=== PATIENT | male | born 1940 | race Caucasian/White ===

== ENCOUNTER 2018-07-31 23:48 | Inpatient (IN) | payer MEDICARE ==
[~2018-07-31] VITALS: Ht 193 cm; Wt 85.7 kg
--- NOTE | 2018-08-01 00:40 | NUR ---
PT BIBSELF C/O REDDNESS AND SWELLING ON LEFT FOOT. PT STATES HE IS UNSURE OF WHEN HE FIRST NOTICED SYMPTOMS, BUT GOT WORSE TODAY. PT DENIES SOB, CHEST PAIN, N/V/D. PT AAOX4. RESPIRATIONS EVEN AND UNLABORED. SKIN WARM AND INTACT. NO ACUTE DISTRESS NOTED. PT ABLE TO AMBULATE WITH STEADY GAIT. PLACED ON MONITOR, WILL CONTINUE TO MONITOR
--- NOTE | 2018-08-01 00:40 | NUR ---
HARMEET CORREA AT BEDSIDE FOR EVALUATION
--- NOTE | 2018-08-01 00:50 | NUR ---
IV INITIATED RIGHT AC 18G. LABS DRAWN FROM SITE. OFFLINE CUTTER AT BEDSIDE FOR COLLECTION. IV INTACT AND PATENT, PLACED ON SALINE LOCK
--- NOTE | 2018-08-01 00:50 | NUR ---
URINE COLLECTED AND SENT TO LAB
[2018-08-01] MEDS ORDERED: IV NS 0.9% 500 ML BAG IV ONE ×2 (01:00→01:30)
[2018-08-01 01:03] LABS: BASOPHILS % (AUTO) 0.1 % (0.0-2.0); EOSINOPHILS % (AUTO) 0.3 % (0.0-6.0); HEMATOCRIT 42 % (39-51); HEMOGLOBIN 14.5 g/dL (13.5-17.5); LYMPHOCYTES # (AUTO) 0.7 /CMM (0.8-4.8); LYMPHOCYTES % (AUTO) 6.9 % (20.0-44.0); MEAN CORPUSCULAR HGB CONC 35 g/dl (31.0-36.0); MEAN CORPUSCULAR VOLUME 95 fL (80-96); MONOCYTES # (AUTO) 0.8 /CMM (0.1-1.30); MONOCYTES % (AUTO) 8.2 % (2.0-12.0); NEUTROPHILS # (AUTO) 8.6 /CMM (1.8-8.9); NEUTROPHILS % (AUTO) 84.5 % (43.0-81.0); PLATELET COUNT (AUTO) 118 /CMM (150-450); RED BLOOD CELL COUNT(AUTO) 4.38 MIL/uL (4.5-6.0); WHITE BLOOD COUNT (AUTO) 10.2 K/uL (4.3-11.0)
[2018-08-01 01:12] LABS: APPEARANCE,URINE CLEAR (CLEAR); BILIRUBIN,URINE NEGATIVE (NEGATIVE); BLOOD, URINE NEGATIVE Ery/uL (NEGATIVE); COLOR,URINE YELLOW (YELLOW); KETONES,URINE NEGATIVE (NEGATIVE); LEUKOCYTE ESTERASE ,URINE NEGATIVE (NEGATIVE); NITRITE, URINE NEGATIVE (NEGATIVE); PROTEIN,URINE NEGATIVE (NEGATIVE); UGLUCOSE NEGATIVE (NEGATIVE); UROBILINOGEN,URINE 0.2 EU/dL (0.2)
[2018-08-01 01:13] LABS: CALCIUM, SERUM 8.9 mg/dL (8.5-10.1); CARBON DIOXIDE 30 mmol/L (21-32); CHLORIDE 100 mmol/L (98-107); CREATININE 1.3 mg/dL (0.6-1.3); GLUCOSE 113 mg/dL (74-106); POTASSIUM 3.1 mmol/L (3.5-5.1); SODIUM SERUM 138 mmol/L (136-145); UREA NITROGEN, BLOOD 26 mg/dL (7-18)
[2018-08-01 01:20] LABS: ALANINE AMINOTRANSFERASE 30 U/L (12-78); ALBUMIN 3.2 g/dL (3.4-5.0); ALKALINE PHOSPHATASE 56 U/L (46-116); ASPARTATE AMINOTRANSFERASE 29 U/L (15-37); BILIRUBIN,DIRECT 0.2 mg/dL (0.0-0.2); BILIRUBIN,TOTAL 0.7 mg/dL (0.2-1.0); TOTAL PROTEIN, SERUM 7.4 g/dL (6.4-8.2)
[2018-08-01] MEDS ORDERED: VANCOMYCIN 1 GM in IV D5W 250 ML IV ONE (01:30)
[2018-08-01] MEDS ORDERED: PIPERACILLIN /TAZOBACTAM 3.375 G in IV D5W 50 ML IV ONE (01:30)
[2018-08-01] MEDS ORDERED: CLINDAMYCIN 900 MG in IV D5W 100 ML IV ONE (01:30)
--- NOTE | 2018-08-01 01:37 | NUR ---
[facility] CALLED FOR AN XRAY READ.
[2018-08-01] MEDS ORDERED: PIPERACILLIN /TAZOBACTAM 3.375 G VIAL IV ONE (01:54)
--- NOTE | 2018-08-01 02:35 | NUR ---
GAVE REPORT TO CROW ESQUEDA FOR SAMEER
[2018-08-01] MEDS ORDERED: CLINDAMYCIN 900 MG/6 ML VIAL ONE (02:37)
--- NOTE | 2018-08-01 02:52 | NUR ---
TOR CALLED. DR VIZCAINO
[2018-08-01] MEDS ORDERED: POTASSIUM CHLORIDE 20 MEQ TAB.PRT.SR PO SCH (03:00)
[2018-08-01] MEDS ORDERED: POTASSIUM CHLORIDE 20 MEQ TAB.PRT.SR PO ONE ×2 (03:00→03:09)
--- NOTE | 2018-08-01 03:42 | NUR ---
MS RN OPENING NOTES: RECEIVED PT ON ROOM AIR AND IS TOLERATING WELL. NO SOB NOTED. NO S/S OF DISTRESS. NOTED L LOWER LEG RED AND SWOLLEN. BILATERAL FEEL NOTED SWELLING BUT NON PITTING. PT NOT COMPLAINING OF PAIN AT THIS TIME. PT HAS IV ON R AC #18G AND IS BEING INFUSED WITH CLINDAMYCIN IV AT THIS TIME. BED KEPT IN LOW, LOCKED POSITION, AND SIDE RAILS X 2UP. WILL CONTINUE TO MONITOR PT.
--- NOTE | 2018-08-01 03:43 | NUR ---
[facility] CALLED TO READ RADIOLOGY REPORT
--- NOTE | 2018-08-01 03:52 | NUR ---
[facility]
[2018-08-01 04:00] VITALS: BP 131/73
[2018-08-01] MEDS ORDERED: POTA-88 PO (04:14)
[2018-08-01] MEDS ORDERED: VIT1CAPS44 PO (04:14)
[2018-08-01] MEDS ORDERED: AMIL1TAB PO (04:14)
[2018-08-01] MEDS ORDERED: NIAC500T2 PO (04:14)
[2018-08-01] MEDS ORDERED: ASPI-1169 PO (04:14)
[2018-08-01] MEDS ORDERED: ALLO100T PO (04:14)
[2018-08-01] MEDS ORDERED: Z GUARD REMEDY 2 OZ OINT TP PRN (04:30)
[2018-08-01] MEDS ORDERED: MAG HYDROX/AL HYDROX/SIMETH 30 ML UDC PO PRN (04:30)
[2018-08-01] MEDS ORDERED: HYDROCODONE/APAP 5/325MG 1 EACH TABLET PO PRN (04:30)
[2018-08-01] MEDS ORDERED: ACETAMINOPHEN 325 MG TABLET PO PRN (04:30)
[2018-08-01] MEDS ORDERED: MAGNESIUM HYDROXIDE 30 ML UDC PO PRN (04:30)
[2018-08-01] MEDS ORDERED: ZOLPIDEM TARTRATE 5 MG TABLET PO PRN (04:30)
[2018-08-01] MEDS ORDERED: ONDANSETRON HCL/PF 4 MG/2 ML VIAL IVP PRN (04:30)
[2018-08-01] MEDS: IV NS 0.9% 1,000 ML IV PRN ×2 (04:49→18:47)
--- NOTE | 2018-08-01 06:50 | NUR ---
MS RN CLOSING NOTES: ALL NEEDS WERE ATTENDED AND ANTICIPATED FOR. PT KEPT CLEAN, DRY, AND COMFORTABLE. PT ON ROOM AIR AND TOLERATING WELL. NO SOB NOTED. NO S/S OF DISTRESS. PT ASLEEP AT THIS TIME. PT DISCONNECTED FROM IV AT THIS TIME PT WENT TO BATHROOM EARLIER. WILL RECONNECT PT BACK TO IV ON R AC #18G TO BE INFUSED AT NS AT 100ML/HR. BED KEPT IN LOW, LOCKED POSITION, AND SIDE RAILS X 2 UP. WILL ENDORSE TO AM NURSE FOR SAMEER.
--- NOTE | 2018-08-01 07:22 | NUR ---
RN OPENING NOTE PT WAS RECEIVED LYING IN BED AT LOWEST AND LOCKED POSITION WITH SIDE RAILS UP X2, A/O 4, BREATHING EVEN AND UNLABORED ON RA, NO CURRENT COMPLAINTS OF PAIN OR DISTRESS NOTED, IV IS PATENT AND INTACT WITH IVF INFUSING AT 100 ML/HR, NOTED TO HAVE LEFT LEG REDNESS, AMBULATORY, SAFETY PRECAUTIONS IN PLACE, CALL LIGHT WITHIN REACH, WILL MONITOR ACCORDINGLY
[2018-08-01 08:00] VITALS: BP 107/49
[2018-08-01] MEDS: POTASSIUM CHLORIDE 20 MEQ TAB.PRT.SR PO SCH (08:04)
[2018-08-01] MEDS: ASPIRIN 81 MG TAB.CHEW PO SCH (08:04)
[2018-08-01] MEDS: ALLOPURINOL 100 MG TABLET PO SCH (08:04)
[2018-08-01] MEDS: HYDROCHLOROTHIAZIDE 25 MG TABLET PO SCH (08:05)
--- NOTE | 2018-08-01 08:10 | NUR ---
RN NOTE WITHHELD HYDROCHLORATHIAZIDE DUE TO BLOOD PRESSURE OF 107/49 PULSE OF 55. WILL MONITOR ACCORDINGLY.
[2018-08-01] MEDS: AMILORIDE HCL 5 MG TABLET PO SCH (09:02)
[2018-08-01] MEDS: CLINDAMYCIN 600 MG in IV D5W 50 ML IV SCH ×3 (11:01→23:39)
[2018-08-01] MEDS ORDERED: CLINDAMYCIN IV RTU IN D5W 900 MG/50 ML PIGGYBACK IV SCH (12:00)
[2018-08-01] MEDS ORDERED: CLINDAMYCIN 600 MG in IV NS 0.9% 50 ML IV SCH (12:00)
[2018-08-01 16:00] VITALS: BP 107/53
[2018-08-01] MEDS ORDERED: NIACIN EXT TAB (500MG) 500 MG TABLET.SA PO SCH (18:00)
--- NOTE | 2018-08-01 18:32 | NUR ---
RN CLOSING NOTE PT RESTING COMFORTABLY IN BED AT LOWEST AND LOCKED POSITION WITH SIDE RAILS UP X2, AWAKE AND ALERT X4, BREATHING EVEN AND UNLABORED, NO S/S OF PAIN OR DISTRESS AT THIS TIME, IVF INFUSING, SAFETY PRECAUTIONS IN PLACE, CALL LIGHT WITHIN REACH, WILL ENDORSE TO STEAM FITTER RN FOR SAMEER.
--- NOTE | 2018-08-01 19:10 | NUR ---
MS/RN OPENING NOTES PT RECEIVED AWAKE, RESTING COMFORTABLY IN BED. A/OX4. ON ROOM AIR, BREATHING EVEN AND UNLABORED. DENIES SOB AND PAIN AT THIS TIME. IN NO ACUTE DISTRESS. IV TO RAC PATENT AND INTACT RUNNING IVF ORDERED. REDNESS AND EDEMA NOTED TO LLE. PT STATES IT HAS IMPROVED SINCE YESTERDAY. BED IN LOW/LOCKED POSITION WITH CALL LIGHT IN REACH, BILATERAL UPPER SIDE RAILS IN PLACE. SEMI FOWLERS. WILL CONTINUE TO MONITOR
[2018-08-01 20:00] VITALS: BP 110/54
[2018-08-02] MEDS: CLINDAMYCIN 600 MG in IV D5W 50 ML IV SCH ×2 (05:59→11:00)
[2018-08-02] MEDS: IV NS 0.9% 1,000 ML IV PRN (06:36)
--- NOTE | 2018-08-02 07:01 | NUR ---
MS/RN CLOSING NOTES PT AWAKE, LAYING COMFORTABLY IN BED. A/OX4. ON ROOM AIR, BREATHING EVEN AND UNLABORED. DENIES SOB AND PAIN. IN NO ACUTE DISTRESS. IV TO RAC PATENT AND INTACT RUNNING IVF ORDERED. NO SIGNIFICANT CHANGES OVERNIGHT. ALL NEEDS MET. SLEPT WELL DURING SHIFT. BED REMAINS IN LOW/LOCKED POSITION WITH CALL LIGHT IN REACH. BILATERAL UPPER SIDE RAILS IN PLACE. WILL ENDORSE TO DAY SHIFT RN SAMEER.
[2018-08-02 07:04] LABS: CALCIUM, SERUM 8.4 mg/dL (8.5-10.1); CARBON DIOXIDE 25 mmol/L (21-32); CHLORIDE 108 mmol/L (98-107); GLUCOSE 97 mg/dL (74-106); MAGNESIUM 1.8 mg/dL (1.8-2.4); PHOSPHORUS 2.6 mg/dL (2.5-4.9); POTASSIUM 3.8 mmol/L (3.5-5.1); SODIUM SERUM 140 mmol/L (136-145); UREA NITROGEN, BLOOD 16 mg/dL (7-18)
[2018-08-02 07:08] LABS: CHOLESTEROL 128 mg/dL (<200); HDL CHOLESTEROL 39 mg/dL (40-60); LDL 81 mg/dL (0-99); TRIGLYCERIDES 85 mg/dL (30-150)
[2018-08-02 07:11] LABS: BASOPHILS % (AUTO) 0.3 % (0.0-2.0); EOSINOPHILS % (AUTO) 1.1 % (0.0-6.0); HEMATOCRIT 37 % (39-51); HEMOGLOBIN 12.5 g/dL (13.5-17.5); LYMPHOCYTES # (AUTO) 0.7 /CMM (0.8-4.8); LYMPHOCYTES % (AUTO) 10.8 % (20.0-44.0); MEAN CORPUSCULAR HGB CONC 34 g/dl (31.0-36.0); MEAN CORPUSCULAR VOLUME 96 fL (80-96); MONOCYTES # (AUTO) 0.6 /CMM (0.1-1.30); NEUTROPHILS % (AUTO) 77.8 % (43.0-81.0); PLATELET COUNT (AUTO) 94 /CMM (150-450); RED BLOOD CELL COUNT(AUTO) 3.82 MIL/uL (4.5-6.0); WHITE BLOOD COUNT (AUTO) 6.4 K/uL (4.3-11.0)
--- NOTE | 2018-08-02 07:19 | NUR ---
RN OPENING NOTE PT WAS RECEIVED SLEEPING IN BED AT LOWEST AND LOCKED POSITION WITH SIDE RAILS UP X2, A/O 4, BREATHING EVEN AND UNLABORED ON RA, NO CURRENT COMPLAINTS OF PAIN OR DISTRESS NOTED, IV IS PATENT AND INTACT WITH IVF INFUSING, NOTED TO HAVE LEFT LEG REDNESS, AMBULATORY, SAFETY PRECAUTIONS IN PLACE, CALL LIGHT WITHIN REACH, WILL MONITOR ACCORDINGLY
[2018-08-02 08:00] VITALS: BP 85/55
[2018-08-02] MEDS: ASPIRIN 81 MG TAB.CHEW PO SCH (08:08)
[2018-08-02] MEDS: ALLOPURINOL 100 MG TABLET PO SCH (08:08)
[2018-08-02] MEDS: HYDROCHLOROTHIAZIDE 25 MG TABLET PO SCH (08:09)
[2018-08-02] MEDS: AMILORIDE HCL 5 MG TABLET PO SCH (08:10)
[2018-08-02] MEDS: POTASSIUM CHLORIDE 20 MEQ TAB.PRT.SR PO SCH (08:10)
--- NOTE | 2018-08-02 08:11 | NUR ---
RN NOTE HYDROCHLOROTHIAZIDE NOT GIVEN DUE TO LOW BP OF 85/55, AND AMLORIDE NOT GIVEN DUE TO LOW BOP OF 85/55 AND NORMAL POTASSIUM LEVEL OF 3.8. WILL MONITOR ACCORDINGLY
[2018-08-02 10:31] LABS: BAND % (MANUAL) 3 % (0.0-5.0); EOSINOPHILS % (MANUAL) 6 % (0-4); LYMPHOCYTES % (MANUAL) 9 % (16-48); MONOCYTES % (MANUAL) 7 % (0-11.0); NEUTROPHILS % (MANUAL) 75 (42-76)
[2018-08-02] MEDS ORDERED: FEE PK DOSING 1 MIN EA MC ONE (15:53)
[2018-08-02 16:00] VITALS: BP 134/69
[2018-08-02] MEDS: VANCOMYCIN 1 GM in IV D5W 250 ML IV SCH (16:33)
--- NOTE | 2018-08-02 18:25 | NUR ---
RN CLOSING NOTE PT RESTING COMFORTABLY IN BED AT LOWEST AND LOCKED POSITION WITH SIDE RAILS UP X2, AWAKE AND ALERT X4, BREATHING EVEN AND UNLABORED, NO S/S OF PAIN OR DISTRESS AT THIS TIME, IVF INFUSING, SAFETY PRECAUTIONS IN PLACE, CALL LIGHT WITHIN REACH, WILL ENDORSE TO BIKE MECHANIC RN FOR SAMEER.
--- NOTE | 2018-08-02 19:25 | NUR ---
MS/RN NOTES RECEIVED PT. LYING IN BED. PT. IS AWAKE, ALERT AND ORIENTED X3. BREATHING EVEN AND UNLABORED ON ROOM AIR. NO SOB, RESPIRATORY DISTRESS OR COMPLAINTS OF PAIN NOTED AT THIS TIME. PT. WITH LEFT FOREARM 18 GAUGE PERIPHERAL IV PRESENT, PATENT AND INTACT ADMINISTERING TO PT. NS @ 100ML/HR. BED LOCKED AND IN LOWEST POSITION, SIDE RAILS UP X2, CALL LIGHT WITHIN REACH, WILL CONTINUE TO MONITOR.
[2018-08-03] MEDS: IV NS 0.9% 1,000 ML IV PRN (05:17)
[2018-08-03] MEDS: VANCOMYCIN 1 GM in IV D5W 250 ML IV SCH ×2 (05:18→18:01)
[2018-08-03 06:40] LABS: BASOPHILS % (AUTO) 0.6 % (0.0-2.0); EOSINOPHILS % (AUTO) 3.2 % (0.0-6.0); HEMATOCRIT 38 % (39-51); HEMOGLOBIN 12.9 g/dL (13.5-17.5); LYMPHOCYTES # (AUTO) 0.8 /CMM (0.8-4.8); LYMPHOCYTES % (AUTO) 14.5 % (20.0-44.0); MEAN CORPUSCULAR HGB CONC 34 g/dl (31.0-36.0); MEAN CORPUSCULAR VOLUME 96 fL (80-96); MONOCYTES # (AUTO) 0.7 /CMM (0.1-1.30); MONOCYTES % (AUTO) 12.7 % (2.0-12.0); NEUTROPHILS # (AUTO) 3.7 /CMM (1.8-8.9); PLATELET COUNT (AUTO) 124 /CMM (150-450); RED BLOOD CELL COUNT(AUTO) 3.94 MIL/uL (4.5-6.0); WHITE BLOOD COUNT (AUTO) 5.3 K/uL (4.3-11.0)
--- NOTE | 2018-08-03 06:51 | NUR ---
MS/RN NOTES PT. IS LYING IN BED RESTING. BREATHING EVEN AND UNLABORED ON ROOM AIR. NO SOB, RESPIRATORY DISTRESS OR COMPLAINTS OF PAIN NOTED AT THIS TIME. PT. WITH LEFT FOREARM 18 GAUGE PERIPHERAL IV PRESENT, PATENT AND INTACT ADMINISTERING TO PT. NS @ 100ML/HR. ALL PT. NEEDS MET. BED LOCKED AND IN LOWEST POSITION, SIDE RAILS UP X2, CALL LIGHT WITHIN REACH, WILL ENDORSE TO DAYSHIFT NURSE FOR CONTINUITY OF CARE.
[2018-08-03 06:54] LABS: CALCIUM, SERUM 8.5 mg/dL (8.5-10.1); CARBON DIOXIDE 25 mmol/L (21-32); CHLORIDE 106 mmol/L (98-107); CREATININE 0.9 mg/dL (0.6-1.3); GLUCOSE 102 mg/dL (74-106); MAGNESIUM 1.7 mg/dL (1.8-2.4); PHOSPHORUS 3.1 mg/dL (2.5-4.9); POTASSIUM 3.7 mmol/L (3.5-5.1); SODIUM SERUM 139 mmol/L (136-145); UREA NITROGEN, BLOOD 14 mg/dL (7-18)
--- NOTE | 2018-08-03 07:58 | NUR ---
MS RN OPENING NOTE RECEIVED PATIENT IN BED. ALERT ORIENTED X4. ON ROOM AIR, TOLERATING WELL. IN NO APPARENT DISTRESS OR DISCOMFORT AT THIS TIME. RESPIRATIONS EVEN AND UNLABORED. DENIES PAIN AND SOB. PATIENT WITH LEFT FA 18G IVC, WITH FLUIDS RUNNING AT 100ML/HR, PATENT AND INTACT. PATIENT NOTED WITH LEFT LOWER LEG REDNESS AND EDEMA. KEPT CLEAN AND COMFORTABLE, ABLE TO AMBULATE WITH STAND BY ASSIST, SAFETY MEASURES IN PLACE, BED IN LOW LOCKED POSITION SIDE RAILS UP X2, CALL LIGHT WITHIN EASY REACH. WILL CONTINUE TO MONITOR.
[2018-08-03 08:00] VITALS: BP 112/58
[2018-08-03] MEDS: ASPIRIN 81 MG TAB.CHEW PO SCH (08:35)
[2018-08-03] MEDS: ALLOPURINOL 100 MG TABLET PO SCH (08:35)
[2018-08-03] MEDS: POTASSIUM CHLORIDE 20 MEQ TAB.PRT.SR PO SCH (08:35)
[2018-08-03] MEDS: AMILORIDE HCL 5 MG TABLET PO SCH (08:36)
[2018-08-03] MEDS: HYDROCHLOROTHIAZIDE 25 MG TABLET PO SCH (08:36)
[2018-08-03] MEDS ORDERED: MAGNESIUM OXIDE 400 MG TABLET PO ONE (10:30)
--- NOTE | 2018-08-03 13:00 | NUR ---
PER DR. UGNTER, PATIENT IS OK TO SHOWER PRN. NOTED AND CARRIED OUT.
[2018-08-03 16:00] VITALS: BP 108/50
--- NOTE | 2018-08-03 18:22 | NUR ---
MS RN CLOSING NOTE PATIENT IN BED. ALERT ORIENTED X4. ON ROOM AIR, TOLERATING WELL. IN NO APPARENT DISTRESS OR DISCOMFORT AT THIS TIME. RESPIRATIONS EVEN AND UNLABORED. DENIES PAIN AND SOB. PATIENT WITH LEFT FA 18G IVC, WITH FLUIDS RUNNING AT 100ML/HR, PATENT AND INTACT. PATIENT NOTED WITH LEFT LOWER LEG REDNESS AND EDEMA, TREATMENT IN PROCESS. KEPT CLEAN AND COMFORTABLE, ALL NEEDS ATTENDED, ORDERS RENDERED, ABLE TO AMBULATE WITH STAND BY ASSIST. SAFETY MEASURES IN PLACE, BED IN LOW LOCKED POSITION SIDE RAILS UP X2, CALL LIGHT WITHIN EASY REACH. WILL ENDORSE TO PM NURSE FOR SAMEER.
--- NOTE | 2018-08-03 19:10 | NUR ---
MS/RN NOTES RECEIVED PT. LYING IN BED. PT. IS AWAKE, ALERT AND ORIENTED X3. BREATHING EVEN AND UNLABORED ON ROOM AIR. NO SOB, RESPIRATORY DISTRESS OR COMPLAINTS OF PAIN NOTED AT THIS TIME. PT. WITH LEFT FOREARM 18 GAUGE PERIPHERAL IV PRESENT, PATENT AND INTACT ADMINISTERING TO PT. NS @ 100ML/HR. PT. WITH FAMILY MEMBER PRESENT AT BEDSIDE. BED LOCKED AND IN LOWEST POSITION, SIDE RAILS UP X2, CALL LIGHT WITHIN REACH, WILL CONTINUE TO MONITOR.
[2018-08-03 20:49] VITALS: BP 121/58
[2018-08-04] MEDS: VANCOMYCIN 1 GM in IV D5W 250 ML IV SCH ×2 (06:11→17:04)
[2018-08-04] MEDS: IV NS 0.9% 1,000 ML IV PRN ×2 (06:11→17:04)
--- NOTE | 2018-08-04 06:26 | NUR ---
MS/RN NOTES PT. IS LYING IN BED. PT. IS AWAKE, ALERT AND ORIENTED X3. BREATHING EVEN AND UNLABORED ON ROOM AIR. NO SOB, RESPIRATORY DISTRESS OR COMPLAINTS OF PAIN NOTED AT THIS TIME. PT. WITH LEFT FOREARM 18 GAUGE PERIPHERAL IV PRESENT, PATENT AND INTACT ADMINISTERING TO PT. NS @ 100ML/HR. ALL PT. NEEDS MET. BED LOCKED AND IN LOWEST POSITION, SIDE RAILS UP X2, CALL LIGHT WITHIN REACH, WILL ENDORSE TO DAYSHIFT NURSE FOR CONTINUITY OF CARE.
[2018-08-04 07:02] LABS: BASOPHILS % (AUTO) 0.5 % (0.0-2.0); EOSINOPHILS % (AUTO) 4.6 % (0.0-6.0); HEMATOCRIT 38 % (39-51); LYMPHOCYTES # (AUTO) 0.8 /CMM (0.8-4.8); LYMPHOCYTES % (AUTO) 17.4 % (20.0-44.0); MEAN CORPUSCULAR HGB CONC 34 g/dl (31.0-36.0); MEAN CORPUSCULAR VOLUME 96 fL (80-96); MONOCYTES # (AUTO) 0.7 /CMM (0.1-1.30); MONOCYTES % (AUTO) 14.8 % (2.0-12.0); NEUTROPHILS # (AUTO) 2.9 /CMM (1.8-8.9); NEUTROPHILS % (AUTO) 62.7 % (43.0-81.0); PLATELET COUNT (AUTO) 133 /CMM (150-450); RED BLOOD CELL COUNT(AUTO) 4.01 MIL/uL (4.5-6.0); WHITE BLOOD COUNT (AUTO) 4.6 K/uL (4.3-11.0)
[2018-08-04 07:14] LABS: CALCIUM, SERUM 8.5 mg/dL (8.5-10.1); CARBON DIOXIDE 25 mmol/L (21-32); CHLORIDE 107 mmol/L (98-107); CREATININE 0.9 mg/dL (0.6-1.3); GLUCOSE 90 mg/dL (74-106); MAGNESIUM 1.6 mg/dL (1.8-2.4); PHOSPHORUS 3.4 mg/dL (2.5-4.9); POTASSIUM 3.8 mmol/L (3.5-5.1); SODIUM SERUM 141 mmol/L (136-145); UREA NITROGEN, BLOOD 12 mg/dL (7-18)
--- NOTE | 2018-08-04 07:25 | NUR ---
MS RN RECEIVED ON BED, AWAKE,ALERT,ORIENTED X4,NOT IN ANY FORM OF DISTRESS, RESPIRATIONS EVEN ANDUNLABORED,NO SOB NOTED, LUNGS ARE CLEAR,ABDOMEN SOFT,POSITIVE BOWEL SOUNDS,DENIES PAIN AT THIS ITME, LEFT LEG CELLULITIS IMPROVING,ALL NEEDS ATTENDED.
[2018-08-04 08:00] VITALS: BP 127/79
[2018-08-04] MEDS: POTASSIUM CHLORIDE 20 MEQ TAB.PRT.SR PO SCH (08:52)
[2018-08-04] MEDS: ALLOPURINOL 100 MG TABLET PO SCH (08:52)
[2018-08-04] MEDS: ASPIRIN 81 MG TAB.CHEW PO SCH (08:52)
[2018-08-04] MEDS: HYDROCHLOROTHIAZIDE 25 MG TABLET PO SCH (08:53)
[2018-08-04] MEDS: AMILORIDE HCL 5 MG TABLET PO SCH (08:55)
--- NOTE | 2018-08-04 08:55 | NUR ---
ms arredondo breakfast served.due meds given,tolerated well.
[2018-08-04] MEDS: Magnesium 1GM/D5W 100ML PREMIX 100 ML IV SCH ×2 (09:49→12:32)
--- NOTE | 2018-08-04 12:00 | NUR ---
MS RN ON BED, NO DISTRESS NOTED.
[2018-08-04 16:00] VITALS: BP 121/61
[2018-08-04] MEDS: LACTOBACILLUS RHAMNOSUS GG 1 EACH CAP.SPRINK PO SCH (17:04)
--- NOTE | 2018-08-04 18:00 | NUR ---
RN NEW IV SITE INSERTED AT LEFT FOREARM G22.
--- NOTE | 2018-08-04 18:41 | NUR ---
MS RN ON BED, NO DISTRESS NOTED.
--- NOTE | 2018-08-04 19:40 | NUR ---
RN NOTES RECEIVED AWAKE IN BED, NO SIGNS OF ACUTE DISTRESS NOTED, ALL SAFETY MEASURES IN PLACED, DENIES ANY PAIN, LEFT LEG CELLULITIS IS IMPROVING, IV ACCESS INTACT AND PATENT, ALL NEEDS ATTENDED, DAUGHTER AT BEDSIDE, WILL MONITOR ACCORDINGLY.
[2018-08-04 20:00] VITALS: BP 112/50
--- NOTE | 2018-08-05 06:46 | NUR ---
RN NOTES AWAKE IN BED, NO SIGNS OF ACUTE DISTRESS NOTED, ALL SAFETY MEASURES IN PLACED, DENIES ANY PAIN, LEFT LEG CELLULITIS IS IMPROVING, IV ACCESS INTACT AND PATENT, ALL NEEDS ATTENDED AND MET, WILL ENDORSE TO AM NURSE FOR CONTINUITY OF CARE.
[2018-08-05 06:57] LABS: BASOPHILS % (AUTO) 0.5 % (0.0-2.0); EOSINOPHILS % (AUTO) 4.1 % (0.0-6.0); HEMATOCRIT 40 % (39-51); HEMOGLOBIN 13.6 g/dL (13.5-17.5); LYMPHOCYTES # (AUTO) 0.9 /CMM (0.8-4.8); LYMPHOCYTES % (AUTO) 18.4 % (20.0-44.0); MEAN CORPUSCULAR HGB CONC 34 g/dl (31.0-36.0); MEAN CORPUSCULAR VOLUME 96 fL (80-96); MONOCYTES # (AUTO) 0.6 /CMM (0.1-1.30); MONOCYTES % (AUTO) 12.3 % (2.0-12.0); NEUTROPHILS # (AUTO) 3.2 /CMM (1.8-8.9); NEUTROPHILS % (AUTO) 64.7 % (43.0-81.0); PLATELET COUNT (AUTO) 168 /CMM (150-450)
[2018-08-05] MEDS: IV NS 0.9% 1,000 ML IV PRN (06:59)
[2018-08-05 07:17] LABS: CALCIUM, SERUM 8.7 mg/dL (8.5-10.1); CARBON DIOXIDE 27 mmol/L (21-32); CHLORIDE 109 mmol/L (98-107); CREATININE 0.9 mg/dL (0.6-1.3); GLUCOSE 90 mg/dL (74-106); MAGNESIUM 1.8 mg/dL (1.8-2.4); PHOSPHORUS 3.3 mg/dL (2.5-4.9); POTASSIUM 3.9 mmol/L (3.5-5.1); SODIUM SERUM 143 mmol/L (136-145); UREA NITROGEN, BLOOD 14 mg/dL (7-18)
--- NOTE | 2018-08-05 07:20 | NUR ---
ms rn receive don bed, awake,alert,oriented x4,not in any form of distress, respirations even and unlabored, no sob noted, left forearm iv leaking, will insert new on, left lower leg cellulitis,still swelling and reddish color, denies pain at this time, will monitor patient's condition.
[2018-08-05 08:00] VITALS: BP 119/64
[2018-08-05] MEDS: ALLOPURINOL 100 MG TABLET PO SCH (08:49)
[2018-08-05] MEDS: LACTOBACILLUS RHAMNOSUS GG 1 EACH CAP.SPRINK PO SCH ×2 (08:50→08:54)
[2018-08-05] MEDS: POTASSIUM CHLORIDE 20 MEQ TAB.PRT.SR PO SCH (08:50)
[2018-08-05] MEDS: ASPIRIN 81 MG TAB.CHEW PO SCH (08:50)
[2018-08-05] MEDS: AMILORIDE HCL 5 MG TABLET PO SCH (08:52)
[2018-08-05] MEDS: VANCOMYCIN 1 GM in IV D5W 250 ML IV SCH ×2 (08:54→16:18)
[2018-08-05] MEDS: HYDROCHLOROTHIAZIDE 25 MG TABLET PO SCH (09:00)
--- NOTE | 2018-08-05 09:00 | NUR ---
ms arredondo breakfast served, due meds given,tolerated well, left hand new iv inserted g 22.
[2018-08-05] MEDS ORDERED: VANC1PLA9 IV (10:16)
--- NOTE | 2018-08-05 14:00 | NUR ---
ms rn patient to go home today per order w/ iv atb.
[2018-08-05 16:00] VITALS: BP 132/71
--- NOTE | 2018-08-05 16:52 | NUR ---
ms rn ready to go after atb infused.
--- NOTE | 2018-08-05 18:04 | NUR ---
ms rn went home via private car, discharge instructions given.
== END 2018-08-05 18:11 | disposition home or self-care (01) | DRG 603 ==
LOC: ER 23:58 → MED 08-01 01:49
PROVIDERS: ADMIT Nurse Practitioner Acute Care; ATTEND Nurse Practitioner Acute Care
PROC: 05H633Z Insertion of Infusion Device into Left Subclavian Vein, Percutaneous Approach (ICD-10-PCS; principal; 2018-08-05)
PROC: B547ZZA Ultrasonography of Left Subclavian Vein, Guidance (ICD-10-PCS; 2018-08-05)
DX: L03.116 Cellulitis of left lower limb (principal); N40.0 Benign prostatic hyperplasia without lower urinary tract symptoms; M10.9 Gout, unspecified; E83.42 Hypomagnesemia; F17.210 Nicotine dependence, cigarettes, uncomplicated
CPT/HCPCS: 36415; 36569; 71045-TC; 80048-TC; 80061-TC; 80076-TC; 80202-TC; 81000-TC; 83605-TC; 83735-TC; 84100-TC; 84484-TC; 85025-TC; 85730-TC; 87040-TC; 87081-TC; 87086-TC; 93971-TC; A4216; G0378; J2543; J3370; J3475; J3490; J7030; J7040; J7060